=== PATIENT | male | born 1980 | race Caucasian/White ===

== ENCOUNTER → 2017-12-11 | Outpatient (CLI) | payer BC ==
[~2017-12-11] MED LIST: FLEXERIL PO; IBUPROFEN 200200 M1 PO
--- NOTE | 2018-01-14 13:50 | PAINCON ---
[address] [address] PAIN MANAGEMENT CONSULTATION Name: NONI GUAN JR Room: [facility]#: [id number] Admission: 12/11/17 Attend Phys: Ayanna Milian MD Discharge: Date of : 80 Report #: [id number] THIS REPORT FOR: //name// CC: Tamia Milian DATE OF SERVICE: 12/11/2017 CHIEF COMPLAINT: Pain and discomfort in the low back area. HISTORY OF PRESENT ILLNESS: The patient is a 37-year-old male who has been referred to the Pain Clinic because of pain involving his back, which has been problematic for some time. He is experiencing pain which is radiating down into his left leg. He has been experiencing some numbness and tingling. There has been no change in bowel or bladder function. He is trying conservative methods. He has taken drrd-gjz-cjzlfzy nonsteroidal anti-inflammatory medications. He states that he has had a history of bilateral L5 pars fractures. He has had some changes to his job to increase the ergonomics, but finds that his pain continues to be problematic. He rates it as a 3/10 at this juncture. He has not had injections. He has undergone physical therapy without relief of his symptoms. He notes that more sitting at his new job seems to have exacerbated this pain. ALLERGIES: No known drug allergies. CURRENT MEDICATIONS: Ibuprofen 200 mg, Flexeril 10 mg t.i.d. PAST MEDICAL HISTORY: 1. Anxiety/depression. 2. Pars defect of the lumbar spine. 3. Prostate enlargement. PAST SURGICAL HISTORY: Left shoulder arthroscopy. Right shoulder surgery in 2009 and left wrist surgery in 2006. SOCIAL HISTORY: The patient works as a cashier manager. He is working at this juncture. REVIEW OF SYSTEMS: Questionnaire in the chart indicates generally good health. A 12-point review, fatigue and weakness, wears glasses, blurred vision, hearing loss/ringing in the ears, joint pain, joint stiffness, joint swelling, muscle cramping, back pain, difficulty walking, numbness and tingling sensation in the left posterior leg. LABORATORY DATA: Lumbar spine radiographs dated 01/16/2017 reveals anatomical alignment in the frontal view. There are chronic L5 [place] [address] PAIN MANAGEMENT CONSULTATION Name: NONI GUAN JR Room: [facility]#: [id number] Admission: 12/11/17 Attend Phys: Ayanna Milian MD Discharge: Date of : 80 Report #: [id number] 4 mm anterolisthesis of L5 on S1. No compression fractures. Lumbar lordosis is maintained. Disks are preserved. Impression, L5 spondylolisthesis. PAIN CLINIC ASSESSMENT: 1. The patient states he is not treated for osteoarthritis or rheumatoid arthritis. He does have bursitis of the shoulder. 2. Height 6 feet, weight 218 pounds, BMI is 29. 3. Vital signs: Blood pressure 120/71, heart rate 79, respiratory rate 16, room air saturation 96%, temperature is 98.2. 4. Pain intensity is 3/10. 5. Fall risk. The patient has not fallen in the last 3 months. 6. Blood thinner. The patient is not on a blood thinning medication. 7. Hypertension. The patient is not being treated for hypertension. 8. Opioid therapy greater than 6 weeks. The patient is not on opioid medication. 9. Risk assessment tool, low for opioids. 10. Functional assessment tool 40/70, which shows a moderate amount of problems with activities of daily living. 11. Recreational drug use. The patient denies use of recreational drugs. 12. Tobacco. The patient denies use of tobacco at this juncture, stopped in 2013. Smoked for 18 years. 13. Alcohol use, approximately two drinks weekly. PHYSICAL EXAMINATION: GENERAL: The patient is a well-developed, well-nourished white male. Appears his stated age. He is alert and oriented x 3. Affect is appropriate. Speech is fluent. HEENT: Normocephalic, atraumatic. Extraocular eye muscles intact. Sclerae nonicteric. Hearing within normal limits. Mucous membranes are moist. NECK: Without adenopathy, JVD or bruits. Good range of motion. HEART: Regular rate, normal S1, S2. LUNGS: Clear to auscultation without rales. ABDOMEN: nontender. MUSCULOSKELETAL: Without significant scoliosis, kyphosis, or lordosis. Upper extremity muscle strength is judged to be 5/5 for the major muscle groups in the upper extremity. This patient has some bursitis type symptomatology on the right side, right shoulder. Sensory exam is within normal limits. Lower extremity muscle strength is judged to be 5/5. Sensory exam shows some numbness and tingling radiating down the posterior portion of his left leg in an L5 distribution with numbness and tingling. Some left buttocks paraspinous tenderness. Deep tendon reflexes are +1 at the knees bilaterally. The patient is able to stand, stand on his toes and heels. Left and right lateral bending, left and right lateral rotation, and lumbar extension were performed. There was some increased discomfort in the left low back area. Straight leg raise right on the left is positive. [address] [place] [address] PAIN MANAGEMENT CONSULTATION Name: NONI GUAN JR Room: [facility]#: [id number] Admission: 12/11/17 Attend Phys: Ayanna Milian MD Discharge: Date of : 80 Report #: [id number] IMPRESSION: Lumbar radiculopathy involving the L5-S1 distribution on the left side. RECOMMENDATIONS: We discussed treatment options with the patient. Risks and benefits of an epidural steroid injection were discussed. Possible complications of the procedure were reviewed. They include, but are not limited to infection, increased muscle soreness, headache, bleeding, paresis, and paralysis involving the lumbar area. The patient feels that he would like to proceed with an epidural steroid injection to gain improvement in his pain and discomfort. He will follow up in the near future, at which time he will then undergo an epidural steroid injection. We would like to thank you for letting us participate in his care. We hope he continues to improve. <ELECTRONICALLY SIGNED> By: Ayanna Milian MD 01/14/18 1350 [id number] [id number]. Shaji Milian MD /nt
== END ==
LOC: M.PC 01:38
DX: M54.5 Low back pain (principal)

== ENCOUNTER → 2017-12-18 | Outpatient (CLI) | payer BC ==
--- NOTE | 2018-01-14 13:50 | PAINCON ---
[address] [address] PAIN MANAGEMENT CONSULTATION Name: NNOI GUAN JR Room: [facility]#: [id number] Admission: 12/18/17 Attend Phys: Ayanna Milian MD Discharge: Date of : 80 Report #: [id number] THIS REPORT FOR: //name// CC: Tamia Milian DATE OF SERVICE: 12/18/2017 FOLLOWUP COMPLAINT: Pain and discomfort in the low back area, which radiates down to the left leg. FOLLOWUP HISTORY: The patient is a 37-year-old gentleman who has been seen in the pain clinic because of lumbar radiculopathy. He has been having pain and discomfort, which really radiates down to the left leg. There is some numbness and tingling sensation. He denies any bowel or bladder problems. He tried conservative methods to control his pain. Okmh-mku-bxzaeku nonsteroidal inflammatory medications have not been effective. He states that he has had a history of bilateral pars fracture. He tries all the appropriate ergonomic setup at his job. Still rates his pain as a 3/10. He has returned to the pain clinic for evaluation and treatment of his painful condition. ALLERGIES: No known drug allergies. CURRENT MEDICATIONS: Ibuprofen 200 mg, Flexeril 10 mg t.i.d. PAIN CLINIC ASSESSMENT: 1. The patient states that he is not being treated for osteoarthritis or rheumatoid arthritis. Does have some bursitis in his shoulder. 2. Height 6 feet, weight 217 pounds, BMI is 29.6.3. 3. Vital Signs: Blood pressure 117/72, heart rate 79, respiratory rate 16, room air saturation 98%, temperature 98. 4. Pain intensity 10/11. 5. Fall risk. The patient has not fallen in the last 3 months. 6. Blood thinner. The patient is not on a blood thinner medications. 7. Hypertension. The patient has not been treated for hypertension. 8. Opioid therapy greater than 6 weeks. The patient is not on her opioid regimen. 9. RISK assessment tool. The patient's findings are low for opioid use. 10. Functional assessment tool, which shows moderate amount of problems with activities of daily living secondary to pain. 11. Recreational drug use. The patient denies use of recreational drugs. 12. Tobacco. The patient denies use of tobacco, stopped in 2013, has an 18-year history. 13. Alcohol use. The patient drinks approximately two [place] [address] PAIN MANAGEMENT CONSULTATION Name: ROGENONI M JR Room: [facility]#: [id number] Admission: 12/18/17 Attend Phys: Ayanna Milian MD Discharge: Date of : 80 Report #: [id number] PHYSICAL EXAMINATION: GENERAL: The patient is a well-developed, well-nourished white male. He appears his stated age. He is alert and oriented x 3. His affect is appropriate. Speech is fluent. HEENT: Normocephalic, atraumatic. Extraocular eye muscles intact. Sclerae nonicteric. Hearing within normal limits. Mucous membranes are moist. NECK: Supple without adenopathy, JVD or bruits. Good range of motion. Regular rate, normal S1, S2. LUNGS: Clear to auscultation without rales. ABDOMEN: Nontender. MUSCULOSKELETAL: Without significant scoliosis, kyphosis or lordosis. The upper extremity muscle strength is judged to be 5/5 in the major muscle groups in the upper extremity. The patient has some bursitis type symptoms involving his right shoulder and right thigh. Lower extremity muscle strength is judged to be 5/5. Sensory exam shows some numbness and tingling in the L5 distribution involving his left leg with numbness and tingling. The patient has some paraspinous muscle tenderness as well. The patient is able to stand, stand on his toes and his heels. Left and right lateral bending, left and right lateral rotation and lumbar extension were performed without significant problem. Straight leg raise right and left positive for nerve root irritation. IMPRESSION: Lumbar radiculopathy involving the L5-S1 distribution on the left, which is most problematic. RECOMMENDATIONS: We discussed treatment options with the patient. Risks and benefits of an epidural steroid injection were again reviewed. Possible complication of the procedure, which could include but are not limited to infection, increased muscle soreness and worsening of pain, improvement pain were described. The patient elects to proceed. PROCEDURE NOTE: The patient was helped on the fluoroscopy table. He was placed in the prone position. His back was sterilely prepped with a Betadine solution, which was allowed to dry. The left paraspinous area was identified. Fluoroscopy using anterior, posterior as well as lateral imaging was used to guide needle placement. A total of 80 Depo-Medrol 40 mg triamcinolone was placed after a 17-gauge Tuohy with loss of resistance technique was used to gain access to the epidural space, 2 mL of 0.25% bupivacaine has been injected. The patient tolerated the procedure well. There was no bleeding. A Band-Aid was placed. The patient was then accompanied to the recovery room where he remained for an appropriate amount of time. Total fluoroscopy time was 19 seconds. The patient's discomfort level was 1 at the time of discharge. [place] [address] PAIN MANAGEMENT CONSULTATION Name: ROGENONI M JR Room: [facility]#: [id number] Admission: 12/18/17 Attend Phys: Ayanna Milian MD Discharge: Date of : 80 Report #: [id number] the future as needed. We would like to thank you for letting us participate in his care. We hope he continues to improve. <ELECTRONICALLY SIGNED> By: Ayanna Milian MD 01/14/18 1350 [id number]. Shaji Milian MD /nt
== END | disposition home or self-care (01) ==
LOC: M.PC 04:05
DX: M54.16 Radiculopathy, lumbar region (principal); G89.29 Other chronic pain

== ENCOUNTER → 2018-01-20 | Outpatient (CLI) | payer BC ==
--- NOTE | 2018-01-29 15:18 | PAINCON ---
[address] [address] PAIN MANAGEMENT CONSULTATION Name: NONI GUAN JR Room: [facility].#: [id number] Admission: 01/20/18 Attend Phys: Ayanna Milian MD Discharge: Date of : 80 Report #: [id number] THIS REPORT FOR: //name// CC: Tamia Milian DATE OF SERVICE: 01/20/2018 CHIEF COMPLAINT: Pain improved after the last injection, but about 3 weeks ago started to return. FOLLOWUP HISTORY: The patient is a 37-year-old gentleman who has been seen in the pain clinic because of lumbar radiculopathy. He has had pain and discomfort, which improved after epidural steroid injection in the left low back area. He has noted over the past few days, some worsening of his pain. Rates it as a 3-4/10. Also, continues to have numbness. He did receive 100% resolution of his pain initially. Continues to take ibuprofen p.r.n. Notes that the pain can be worse with activities, walking, standing and sitting. Medications can be helpful as well. He would like to undergo another epidural injection. There were no complications from the previous procedures. ALLERGIES: No known drug allergies. CURRENT MEDICATIONS: Ibuprofen 200 mg and Flexeril 10 mg p.o. t.i.d. p.r.n. PAIN CLINIC ASSESSMENT: 1. The patient is not being treated for osteoarthritis or rheumatoid arthritis. Did have some bursitis in his shoulder. 2. Height 6 feet, weight 214 pounds, BMI is 29. 3. Vital signs: Blood pressure 127/77, pulse 90, respiratory rate 16, room air saturation is 98%, temperature 98.3. 4. Fall history: The patient has not fallen in the last 3 months. 5. Blood thinner. The patient is not on a blood thinning medication. 6. Hypertension. The patient is not being treated for hypertension. 7. Opioid therapy greater than 6 weeks. The patient is not on opioid therapy. 8. Risk assessment tool, the patient is low for use of opioids. 9. Functional assessment tool, 40/70 indicating moderate amount of problems with activities of daily living secondary to pain. 10. Recreational drug use. The patient denies use of recreational drugs. 11. Tobacco: The patient denies use of tobacco, stopped in 2013, had an 18-year history prior to that. 12. Alcohol: The patient denies use of excessive alcoholic drinks about 2 alcoholic beverages per week. PHYSICAL EXAMINATION: GENERAL: The patient is a well-developed, well-nourished [place] [address] PAIN MANAGEMENT CONSULTATION Name: NONI GUAN JR Room: [facility]#: [id number] Admission: 01/20/18 Attend Phys: Ayanna Milian MD Discharge: Date of : 80 Report #: [id number] appears his stated age. He is alert and oriented x 3. His affect is appropriate. Speech is fluent. HEENT: Normocephalic, atraumatic. Extraocular eye muscles intact. Sclerae nonicteric, Hearing, within normal limits. Mucous membranes are moist. NECK: Supple without adenopathy, JVD, or bruits. Good range of motion. HEART: Regular rate, normal S1, S2. LUNGS: Clear to auscultation without rales. ABDOMEN: Nontender. MUSCULOSKELETAL: Without significant scoliosis, kyphosis, or lordosis. The patient's upper extremity, muscle strength is judged to be 5/5 for the major muscle groups. Lower extremity, the patient has some pain and discomfort in his right arm. History of bursitis. Lower extremity judged to be 5/5 for the major muscle groups. The patient has pain and discomfort radiating down into the left L5-S1 dermatomal distribution with pain down into the calf, numbness and tingling involving his toes. Straight leg raise is positive on the left, indicating nerve root irritation. IMPRESSION: Lumbar radiculopathy involving the L5-S1 doors dermatomal distribution which improved by 100% after the last injection. RECOMMENDATIONS: We discussed treatment options with the patient. Risks and benefits of an injection were again reviewed. Possible complications, which could include but are not limited to infection, increased muscle soreness, headache, bleeding, paralysis, worsening of pain, improvement in pain. The patient elects to proceed. PROCEDURE NOTE: The patient was placed in the prone position. Fluoroscopy was used to identify the L5-S1 area. Fluoroscopy using an anterior, posterior as well as lateral viewing were implemented. The L5-S1 area was identified. Fluoroscopy was used. 0.25% bupivacaine was infiltrated into the area, which had been sterilely prepped with Betadine and sterilely covered with a drape. A total of 80 mg Depo-Medrol, 40 mg triamcinolone, and 2 mL of 0.25% bupivacaine was injected. The patient tolerated the procedure well. There were no complications. His pain level was 3/10 at the time of discharge. Total of 6 seconds fluoroscopy time was used. He remained in the pain clinic for an appropriate amount of time. We would like to thank you for letting us participate in his care. We hope he continues to improve. <ELECTRONICALLY SIGNED> By: Ayanna Milian MD 01/29/18 [id number]. Shaji Milian MD /[facility]
== END | disposition home or self-care (01) ==
LOC: M.PC 02:49
DX: M54.16 Radiculopathy, lumbar region (principal); G89.29 Other chronic pain; Z98.890 Other specified postprocedural states